=== PATIENT | male | born 1950 | race Two or more races ===

== ENCOUNTER 2018-04-25 08:46 | Day surgery (SDC) | payer BC ==
[2018-04-25] VITALS (9 sets, daily range): BP systolic 99–111; BP diastolic 69–74
[~2018-04-25] VITALS: Ht 182.9 cm; Wt 63.5 kg
[2018-04-25] MEDS ORDERED: METOPROLOL SUCC50 MG ORAL (09:29)
[2018-04-25] MEDS ORDERED: MULTIVITAMINS1 EAC2 ORAL (09:29)
[2018-04-25] MEDS ORDERED: ASPIR 8181 MG ORAL (09:29)
[2018-04-25] MEDS ORDERED: OXYBUTYNIN CHLOR5 M1 ORAL (09:29)
[2018-04-25] MEDS ORDERED: [UNRECOGNIZED DRUG - OTHER] PO (09:29)
[2018-04-25] MEDS ORDERED: ATORVASTATIN CA10 MG ORAL (09:29)
[2018-04-25] MEDS ORDERED: [UNRECOGNIZED DRUG - OTHER] PO (09:29)
[2018-04-25] MEDS ORDERED: DESMOPRESSIN0.1 MG PO (09:29)
[2018-04-25] MEDS ORDERED: LINZESS145 MCG PO (09:31)
[2018-04-25] MEDS ORDERED: VITAMIN D22000 UNIT PO (09:31)
--- NOTE | 2018-04-25 10:19 | Short Stay Surgery H&P ---
History of Present Illness History of Present Illness Chief Complaint screening colon, GERD HPI Kartik Moody is a 68 year old male who was admitted on for Colon Screening, Anemia Patient History Allergies: Coded Allergies: No Known Allergies (Unverified , 04/25/18) Medication History Scheduled Aspirin* (Aspir 81*), 81 MG ORAL DAILY, (Reported) Atorvastatin Calcium* (Lipitor*), 10 MG ORAL BEDTIME, (Reported) Desmopressin Acetate (Desmopressin Acetate), 0.1 MG PO BEDTIME, (Reported) Ergocalciferol (Vitamin D2) (Vitamin D2), 50,000 UNIT PO ONCE A WEEK, (Reported) Linaclotide (Linzess), 145 MCG PO BEFORE BREAKFAST, (Reported) Metoprolol Succinate* (Metoprolol Succinate*), 50 MG ORAL DAILY, (Reported) Multivitamins* (Multivitamins*), 1 TAB ORAL DAILY, (Reported) Oxybutynin Chloride (Oxybutynin Chloride), 5 MG ORAL BID, (Reported) [Fefol], 1 CAP PO DAILY, (Reported) [Tedalosin ], 0.4 MG PO DAILY, (Reported) Review of Systems Cardiovascular: Reports: no symptoms Skeletal: Reports: no symptoms Gastrointestinal: Reports: gastro esophageal reflux disease Genitourinary: Reports: no symptoms Neurologic: Reports: no symptoms Endocrine: Reports: no symptoms Hematologic: Reports: no symptoms Physical Exam Vital Signs Last Vital Signs Date Time Temp Pulse Resp B/P (MAP) Pulse Ox O2 Delivery O2 Flow Rate FiO2 04/25/18 09:35 Room Air 04/25/18 09:20 97.2 62 18 107/74 (85) 99 97.2 Skin: normal HENT: normal Heart: normal Lungs: normal Abdomen: normal Extremities: normal Plan Plan of Care esophagogastroduodenoscopy and colonoscopy Attestation Are the patient's medical conditions optimized for surgery? Attestation Response: yes Nadeem Benjamin MD Apr 25, 2018 10:19
--- NOTE | 2018-04-25 10:42 | Pre-Procedure Note/Attestation ---
Pre-Procedure Note/Attestation Complete Prior to Procedure Planned Procedure: not applicable Procedure Narrative: esophagogastroduodenoscopy and colonoscopy Indications for Procedure Pre-Operative Diagnosis: screening colon, GERD Attestation I attest that I discussed the nature of the procedure; its benefits; risks and complications; and alternatives (and the risks and benefits of such alternatives ), prior to the procedure, with the patient (or the patient's legal sales support representative). I attest that, if there was a reasonable possibility of needing a blood transfusion, the patient (or the patient's legal sales support representative) was given the [facility] standardized written summary, pursuant to the [place] Blood Safety Act ([place] Health and Safety Code # 1645, as amended). I attest that I re-evaluated the patient just prior to the surgery and that there has been no change in the patient's H&P, except as documented below: Nadeem Benjamin MD Apr 25, 2018 10:42
[2018-04-25] MEDS ORDERED: Propofol 200mg/20ml IV ONE (11:00)
[2018-04-25] MEDS ORDERED: Lidocaine 1% MPF 10mg/ml 5ml ONE (11:00)
[2018-04-25] MEDS ORDERED: LR 1000ml ONE (11:00)
--- NOTE | 2018-04-25 11:13 | Anethesia Preoperative Eval ---
Anesthesia Pre-op PMH/ROS General Date of Evaluation: Apr 25, 2018 Time of Evaluation: 10:32 Anesthesiologist: Chari Curtis CRNA ASA Score: ASA 3 Mallampati Score Class I : Soft palate, uvula, fauces, pillars visible Class II: Soft palate, uvula, fauces visible Class III: Soft palate, base of uvula visible Class IV: Only hard plate visible Mallampati Classification: Class III Surgeon: Sourav Diagnosis: Colon screening, anemia Surgical Procedure: EGD and colonoscopy diagnosticc Anesthesia History: none Family History: no anesthesia problems Allergies: Coded Allergies: No Known Allergies (Unverified , 04/25/18) Medications: see eMAR Past Medical History Cardiovascular: Reports: HTN, other - Hyperlipidemia Pulmonary: Denies: asthma, COPD, SILVA, other Gastrointestinal/Genitourinary: Reports: GERD HEENT: Reports: other - 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 Exam Physician Exam Last Vital Signs Date Time Temp Pulse Resp B/P (MAP) Pulse Ox O2 Delivery O2 Flow Rate FiO2 04/25/18 09:35 Room Air 04/25/18 09:20 97.2 62 18 107/74 (85) 99 97.2 Constitutional: NAD Neurologic: CN 2-12 intact Cardiovascular: RRR Respiratory: CTA Gastrointestinal: S/NT/ND Airway Exam Mallampati Score: Class III MO: limited TMD: LEFT mandible absent, deviated mouth opening to RIGHT ROM: limited Dentures: no upper, no lower Anesthesia Pre-op A/P Studies Pre-op Studies: EKG - NSR Risk Assessment & Plan Assessment: Potential difficult airway Plan: MAC Status Change Before Surgery: Yes Chari Curtis CRNA Apr 25, 2018 11:13
--- NOTE | 2018-04-25 11:37 | Endoscopy Procedure Note ---
Endoscopy Procedure Note General Indication for Procedure: screening colon, GERD Procedures Performed: EGD, colonoscopy Operative Findings/Diagnosis: gastritis, one colon polyp Specimen: yes Pt Tolerated Procedure Well: Yes Estimated Blood Loss: none Anesthesia Anesthesiologist: see chart Anesthesia: MAC Inserted Devices Implant(s) used?: No Quality Quality of Bowel Preparation: Fair Did scope reach the cecum?: No Why scope didn't reach cecum: Bowel preparation poor, Hx of Colon resection Was there any complications?: No GI Core Measures 50 yrs or older w/o bx or poly: No 10yrs. F/U not recommended: Yes If not recommended, why?: Above average risk 10 yrs. F/U needed: Yes 18 years or older w/prev. colo: No Nadeem Benjamin MD Apr 25, 2018 11:37
--- NOTE | 2018-04-25 11:45 | Immediate Post-Op Evaluation ---
Immediate Post-Op Evalulation Immediate Post-Op Evalulation Procedure: Colonoscopy and EGD diagnostic Date of Evaluation: Apr 25, 2018 Time of Evaluation: 11:38 IV Fluids: LR 600 ml Blood Pressure Systolic: 100 Blood Pressure Diastolic: 71 Pulse Rate: 62 Respiratory Rate: 12 O2 Sat by Pulse Oximetry: 100 Temperature (Fahrenheit): 97.8 Pain Score (1-10): 0 Nausea: No Vomiting: No Complications none Patient Status: reacts, patent Hydration Status: adequate Chari Curtis CRNA Apr 25, 2018 11:45
--- NOTE | 2018-04-25 11:46 | Anethesia Preoperative Eval ---
Anesthesia Pre-op PMH/ROS General Date of Evaluation: Apr 25, 2018 Time of Evaluation: 10:35 ASA Score: ASA 2 Mallampati Score Class I : Soft palate, uvula, fauces, pillars visible Class II: Soft palate, uvula, fauces visible Class III: Soft palate, base of uvula visible Class IV: Only hard plate visible Mallampati Classification: Class III Surgeon: Sourav Diagnosis: Colon screening, anemia Surgical Procedure: EGD and colonoscopy diagnostic Anesthesia History: none Family History: no anesthesia problems Allergies: Coded Allergies: No Known Allergies (Unverified , 04/25/18) Past Medical History Cardiovascular: Reports: HTN, other - Hypercholesteremia Pulmonary: Denies: asthma, COPD, SILVA, other Gastrointestinal/Genitourinary: Denies: GERD, CRI, ESRD, other Neurologic/Psychiatric: Denies: dementia, CVA, depression/anxiety, TIA, other Endocrine: Denies: DM, hypothyroidism, steroids, other HEENT: Reports: other - Oral CA s/p surgical resection and radiation therapy Hematology/Immune: Reports: anemia Anesthesia Pre-op Phys. Exam Physician Exam Last Vital Signs Date Time Temp Pulse Resp B/P (MAP) Pulse Ox O2 Delivery O2 Flow Rate FiO2 04/25/18 09:35 Room Air 04/25/18 09:20 97.2 62 18 107/74 (85) 99 97.2 Airway Exam Mallampati Score: Class III Chari Curtis CRNA Apr 25, 2018 11:46
--- NOTE | 2018-04-25 12:36 | 48 Hour Post Anesthesia Eval ---
Post Anesthesia Evaluation Procedure: Colonoscopy and EGD diagnostic Date of Evaluation: Apr 25, 2018 Time of Evaluation: 12:35 Blood Pressure Systolic: 103 0: 69 Pulse Rate: 57 Respiratory Rate: 14 Temperature (Fahrenheit): 97.4 O2 Sat by Pulse Oximetry: 100 Airway: patent Nausea: No Vomiting: No Pain Intensity: 0 Hydration Status: adequate Cardiopulmonary Status: Stable Mental Status/LOC: patient returned to baseline Follow-up Care/Observations: none Post-Anesthesia Complications: None Follow-up care needed: ready to discharge Chari Curtis CRNA Apr 25, 2018 12:36
--- NOTE | 2018-04-25 16:30 | Procedure Note ---
DATE OF PROCEDURE: 04/25/2018 SURGEON: Nadeem Benjamin M.D. REFERRING PHYSICIAN: Nadeem Perez M.D. PROCEDURE: Upper endoscopy with biopsy and colonoscopy with biopsy. ANESTHESIA: Per PLUCK TRIMMER. INSTRUMENT: Olympus adult flexible upper endoscope and colonoscope. INDICATION: Screening colonoscopy evaluation, chronic GERD. The procedure, risks, benefits, and possible consequences, including hemorrhage, aspiration, perforation and infection, and alternative treatments, were explained to the patient/legal guardian by Dr. Nadeem Benjamin and the patient/legal guardian understood and accepted these risks. DESCRIPTION OF PROCEDURE: After informed consent was obtained and the patient was adequately sedated, Olympus upper endoscope was advanced from the mouth into the second portion of the duodenum and retroflexion was performed in the stomach. The patient has evidence of paraesophageal hernia without any obvious esophagitis. No ulcerations. No gastric bleeding. The patient has minimum gastritis. Random biopsy from antrum and body was obtained to rule out H. pylori infection. At this time, the upper endoscope was retrieved. The patient was turned over for colonoscopy. First, rectal exam was performed which was positive for internal hemorrhoids. This colonoscopy examination was extremely challenging. I spent over an hour trying to get through this colonoscopy examination. The quality of prep was fair. We took about 1500 mL of water or fluid throughout this colonoscopy examination trying to get through, so it was full of pockets of fluid. Interestingly, it was very convoluted and was with multiple pockets where you pass one pocket, you get to another pocket filled with fluid, aspirate that, get through, get to another pocket, so it was very like bead-shaped colon and very difficult. We think we got all the way to about ascending colon. We could not get to the cecum given this difficulty and this colon anatomy. 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 At the end, around the ascending colon, we saw one polyp which we removed with the cold biopsy forceps technique. It was very tiny. The rest of the exam was grossly within normal limits. Retroflexion of rectum showed evidence of internal hemorrhoids. SUMMARY OF FINDINGS: 1. Possible paraesophageal hernia. 2. Gastritis, status post biopsy. 3. Incomplete colonoscopy examination for two reasons, one the prep and also anatomy of the colon, very difficult colonoscopy examination. We possibly got to the ascending colon, but not to the cecum. 4. One colonic polyp removed, see above for details. 5. hemorrhoids. RECOMMENDATIONS: 1. Follow up biopsy results and treat accordingly. 2. We will recommend Cologuard test to see if the patient has anything on the right side on the cecum. I want to thank Dr. Nadeem Perez for this kind referral. Nadeem Benjamin M.D. DR: Rishi JOB#: [id number] CC: Nadeem Perez M.D.
== END 2018-04-25 12:45 | disposition home or self-care (01) ==
LOC: GAS 08:46
DX: Z12.11 Encounter for screening for malignant neoplasm of colon (principal); K64.8 Other hemorrhoids; D12.2 Benign neoplasm of ascending colon; K63.89 Other specified diseases of intestine; K21.9 Gastro-esophageal reflux disease without esophagitis; K44.9 Diaphragmatic hernia without obstruction or gangrene; K29.50 Unspecified chronic gastritis without bleeding; E78.00 Pure hypercholesterolemia, unspecified; I10 Essential (primary) hypertension; E78.5 Hyperlipidemia, unspecified; D64.9 Anemia, unspecified; Z85.89 Personal history of malignant neoplasm of other organs and systems; Z79.82 Long term (current) use of aspirin; Z90.49 Acquired absence of other specified parts of digestive tract
CPT/HCPCS: 43239; 45380; 93005; J2704; J7120; 94003; 94150